=== PATIENT | male | born 1980 | race Caucasian/White ===

== ENCOUNTER → 2024-12-12 | Outpatient (CLI) | payer OTHER ==
--- NOTE | 2024-12-13 06:16 | MR ---
EXAMINATION TYPE: MR shoulder RT wo con DATE OF EXAM: 12/12/2024 7:33 PM COMPARISON: Right shoulder x-ray November 08, 2024 CLINICAL INDICATION: Male, 43 years old with history of S46.911A STRAIN UNSP MUSC/FASC/TEND AT SHLDR/ UP AR, right shoulder pain due to lifting heavy object overhead IV Contrast: cc (None if empty) TECHNIQUE: Multiplanar, multisequence imaging of the right shoulder is performed without contrast. FINDINGS: Rotator Cuff: Intact infraspinatus tendon. Intact supraspinatus tendon with areas of increased signal . Intact subscapularis tendon. Rotator cuff muscle bulk is preserved. Acromioclavicular Joint: Mild to moderate narrowing. Moderate severe capsular hypertrophy with loss o f underlying fat plane noted. Glenohumeral Joint: No significant joint effusion. No significant spurring. Labrum: The labrum appears grossly intact given limitation of non-arthrogram study. Biceps Tendon: The long head of biceps is in normal location within bicipital groove. Bone marrow signal: Heterogeneous increased T2 signal involving the distal clavicle. Other: No additional significant abnormality is appreciated. IMPRESSION: 1. Mild to moderate tendinosis of the supraspinatus tendon. 2. No labral tear. 3. 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 [facility], , 12/13/2024 6:14 AM
== END | disposition home or self-care (01) ==
LOC: RADMRIMAIN 18:44
PROVIDERS: ATTEND Emergency Medicine
DX: S46.911D Strain of unspecified muscle, fascia and tendon at shoulder and upper arm level, right arm, subsequent encounter (principal); M67.813 Other specified disorders of tendon, right shoulder; M19.011 Primary osteoarthritis, right shoulder